=== PATIENT | female | born 1975 | race Caucasian/White ===

== ENCOUNTER 2020-06-30 09:01 | Outpatient (CLI) | payer MEDICAID, SELFPAY ==
--- NOTE | 2020-06-30 09:18 | PDOC.PAIN ---
Pain Clinic Procedure Note Procedure Note Procedure Note: Lumbar/Sacral Medial Branch Blocks JORDIN HERNANDEZ has been referred to the [facility] for lumbar/sacral medial branch blocks. COMMENTS: patient has axial midline back pain, right sacroiliac joint mediated pain as well as lumbar radicular symptoms involving the L5 nerve root, per evaluation with Ms Nara Huerta APRN in our pain clinic. patient presents today for diagnostic lumbar medial branch nerve block as the first step to manage her axial back pain. 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 Pre-operative diagnosis: lumbar spondylosis Post-operative diagnosis: same as above Patient was interviewed and the medical record reviewed. There were no medical, pharmacologic, radiographic or other structural contraindications to attempting fluoroscopically guided local anesthetic lumbar/sacral medial branch blocks. Risks and expected side effects as well as potential benefit of the procedure were reviewed and voiced concerns addressed. The printed consent form was signed and witnessed. Standard time-out procedure was performed. Patient was placed in the prone position on the fluoroscopy table and automated blood pressure cuff and pulse oximeter applied. The skin entry points for approaching the anatomic target points of the segmental medial branches of bilateral L3, L4, L5-DR were identified with anfluoroscopy and marked. Following thorough Chlorhexadine preparation of the skin and draping and 1% lidocaine infiltration of the skin entry points and subcutaneous tissues, a 22 gauge spinal needle was placed under fluoroscopic guidance down on to the target point for each respective segmental medial branch.Position was confirmed in A/P, oblique and lateral views with 0.25ml of omnipaque 240. Coult be this method .5ml 0.5% Bupivacaine was injected. Vital signs were stable throughout the procedure and were as recorded in the docflowsheet by the nursing staff. Follow up plans and appointments were discussed and was instructed to keep careful note of how the usual pain was modified by these injections. Specifically was asked to keep a pain diary for the next 24 hours using a numeric pain scale of 0-10 and report these results at the follow-up visit. Post procedure instruction was given as documented in the nursing documentation and having met discharge criteria. Patient was discharged from the [facility]. Based on the medial branches blocked today, if the patient has adequate relief and we are able to proceed to radiofrequency ablation, the treatment should result in the denervation of the bilateral L4/5 and L5/S1 facets. We would expect to denervate a total of 4 facets during the radiofrequency ablation. COMMENTS: pre-procedure pain level is 8 out of 10 with lumbar extension (Merino's testing), post-procedure pain level is reported as 4 out fo 10. I personally performed the entire procedure. Eufemia Trinidad MD Pain Management CC: Unknown,Unknown
== END 2020-06-30 09:02 | disposition home or self-care (01) ==
LOC: PC 09:01
PROVIDERS: Visit Provider Internal Medicine
DX: R69 Illness, unspecified (principal)
CPT/HCPCS: 64493; 64494

== ENCOUNTER 2020-06-30 11:25 | Outpatient (CLI) | payer MEDICAID, SELFPAY ==
--- NOTE | 2020-06-30 06:00 | DI.RAD_ITS ---
EXAM: XR PAIN CLINIC LUMBAR SP 2V CLINICAL HISTORY: Dx: Lumbar Spondylosis TECHNIQUE: COMPARISON: No exams were available for comparison FINDINGS: C-arm fluoroscopy was utilized by Dr. Oseguera during reported bilateral lumbar medial branch block. Hard c opies show bilateral injections at what appear to be the L3-4, L4-5, and L5-S1 levels. Ka,r=19.1 mGy IMPRESSION: RADIATION DOSE DELIVERED: Total DLP
[2020-06-30 09:07] VITALS: BP 123/78; PULSE 87; RESP 18; TEMP 36; O2SAT 98
[2020-06-30] MEDS: Omnipaque 240 MG/ML 50 ML BTL IJ (10:00)
[2020-06-30] MEDS: Bupivacaine 0.5% Pres-Free 10 ML VIAL IJ (10:00)
[2020-06-30 10:09] VITALS: BP 144/80; PULSE 80; RESP 16; O2SAT 97
== END 2020-06-30 11:26 | disposition home or self-care (01) ==
LOC: PC 11:25
PROVIDERS: Visit Provider Internal Medicine
DX: M47.816 Spondylosis without myelopathy or radiculopathy, lumbar region (principal)
CPT/HCPCS: 64493; 64494; 72100; Q9967

== ENCOUNTER 2020-07-07 07:50 | Outpatient (CLI) | payer MEDICAID, SELFPAY ==
[2020-07-07 07:59] VITALS: BP 127/70; PULSE 79; RESP 16; TEMP 36.4; O2SAT 100
[2020-07-07] MEDS: Omnipaque 240 MG/ML 50 ML BTL IJ (08:26)
[2020-07-07] MEDS: Lidocaine 2% Pres-Free 5 ML VIAL IJ (08:26)
--- NOTE | 2020-07-07 08:32 | PDOC.PAIN ---
Pain Clinic Procedure Note Procedure Note Procedure Note: Lumbar/Sacral Medial Branch Blocks JORDIN HERNANDEZ has been referred to the [facility] for confirmatory lumbar/sacral medial branch blocks. COMMENTS: patient has axial midline back pain, right sacroiliac joint mediated pain as well as lumbar radicular symptoms involving the L5 nerve root, per evaluation with Ms Nara Huerta APRN in our pain clinic. patient returns to clinic today for confirmatory bilateral lumbar medial branch nerve block. She responded well to the first set of diagnostic lumbar medial branch nerve block. she understands today's procedure is aimed to help with her axial back pain. Her average pain level is reported as at least 6 out of 10 on daily basis with functional impairment. Pre-operative diagnosis: lumbar spondylosis Post-operative diagnosis: same as above Patient was interviewed and the medical record reviewed. There were no medical, pharmacologic, radiographic or other structural contraindications to attempting fluoroscopically guided local anesthetic lumbar/sacral medial branch blocks. Risks and expected side effects as well as potential benefit of the procedure were reviewed and voiced concerns addressed. The printed consent form was signed and witnessed. Standard time-out procedure was performed. Patient was placed in the prone position on the fluoroscopy table and automated blood pressure cuff and pulse oximeter applied. The skin entry points for approaching the anatomic target points of the segmental medial branches of bilateral L3, L4, L5-DR were identified with anfluoroscopy and marked. Following thorough Chlorhexadine preparation of the skin and draping and 1% lidocaine infiltration of the skin entry points and subcutaneous tissues, a 22 gauge 3.5'' spinal needle was placed under fluoroscopic guidance down on to the target point for each respective segmental medial branch.Position was confirmed in A/P, oblique and lateral views with 0.25ml of omnipaque 240. Then 0.5ml 2% preservative free lidocaine was injected at each site. Vital signs were stable throughout the procedure and were as recorded in the docflowsheet by the nursing staff. Follow up plans and appointments were discussed and was instructed to keep careful note of how the usual pain was modified by these injections. Specifically was asked to keep a pain diary for the next 24 hours using a numeric pain scale of 0-10 and report these results at the follow-up visit. Post procedure instruction was given as documented in the nursing documentation and having met discharge criteria. Patient was discharged from the [facility]. Based on the medial branches blocked today, if the patient has adequate relief and we are able to proceed to radiofrequency ablation, the treatment should result in the denervation of the bilateral L4/5 and L5/S1 facets. We would expect to denervate a total of 4 facets during the radiofrequency ablation. COMMENTS: pre-procedure pain level VAS score 6 out of 10, post-procedure pain level is reported as 0 of 10 on VAS scale. I personally performed the entire procedure. Eufemia Trinidad MD Pain Management CC: Unknown,Unknown
--- NOTE | 2020-07-07 08:33 | DI.RAD_ITS ---
EXAM: XR PAIN CLINIC LUMBAR SP 2V CLINICAL HISTORY: Dx: Lumbar Spondylosis TECHNIQUE: 2D and realtime digital imaging was performed. CONTRAST MATERIAL: Refer to procedure report. COMPARISON: No exams were available for comparison FINDINGS: Fluoroscopy was provided for Dr. Trinidad during the performance of a bilateral lumbar medial branch block . Please refer to the procedure report for complete details. Ka,r=20.7 mGy IMPRESSION:
[2020-07-07 08:45] VITALS: BP 147/84; PULSE 78; RESP 18; O2SAT 98
== END 2020-07-07 07:51 | disposition home or self-care (01) ==
LOC: PC 07:51
PROVIDERS: Visit Provider Internal Medicine
DX: M47.816 Spondylosis without myelopathy or radiculopathy, lumbar region (principal)
CPT/HCPCS: 64493; 64494; 72100; Q9967

== ENCOUNTER 2020-07-14 12:57 | Outpatient (CLI) | payer MEDICAID, SELFPAY ==
--- NOTE | 2020-07-14 06:00 | DI.RAD_ITS ---
Exam(s) XR PAIN CLINIC LUMBAR SP 2V EXAM: XR PAIN CLINIC LUMBAR SP 2V CLINICAL HISTORY: Dx: Lumbar Spondylosis TECHNIQUE: 2D and realtime digital imaging was performed. CONTRAST MATERIAL: Refer to procedure report. COMPARISON: No exams were available for comparison FINDINGS: Fluoroscopy was provided for Dr. Trinidad during the performance of a bilateral lumbar radiofrequency abla tion. Please refer to the procedure report for complete details. Ka,r=22.15 mGy IMPRESSION:
[2020-07-14 13:16] VITALS: BP 140/65; PULSE 80; RESP 22; TEMP 36.4; O2SAT 100
[2020-07-14] MEDS: Lactated Ringers 1,000 ML 80 ML IV (13:40)
[2020-07-14] MEDS: fentaNYL 100 MCG/2 ML VIAL IVP (13:53)
[2020-07-14] MEDS: Midazolam 2 MG/2 ML VIAL IVP (13:53)
[2020-07-14 14:17] VITALS: BP 139/83; PULSE 80; RESP 17; O2SAT 97
--- NOTE | 2020-07-14 14:23 | PDOC.PAIN_ITS ---
Pain Clinic Procedure Note Procedure Note Procedure Note: Bilateral Lumbar Radiofrequency with Coolief Machine PROCEDURE NOTE Date of Service: July 14, 2020 Patient: JORDIN HERNANDEZ Provider: Eufemia Trinidad MD Pre Operative Diagnosis: lumbar spondylosis Post Operative Diagnosis: same as above PROCEDURE: Radiofrequency Ablation of medial branches - L3, L4, L5-DR JORDIN Mcqueen MARY was brought into the fluoroscopy suite and positioned into the prone position on the fluoroscopy table and allowed to adjust to a position of comfort. A grounding pad was placed on the right thigh. The lumbar region was widely prepped with a chloraprep solution, allowed to air dry and draped in standard sterile surgical fashion. Local anesthesia was provided by 10mL of 1% lidocaine delivered with a 25g needle. A 17g 100mm radiofrequency introducer needle was placed to the planned anatomic targets guided with intermittent fluoroscopy with a perpendicular approach to terminally place at the junction of the superior articular process and the transverse process of the bilateral L3, L4, and the base of the sacral ala on the bilateral for the L5 medial branch nerve. The stylets were removed and radiofrequency probes with a 4mm active tip were then inserted. Needle tip position of the probes was verified in the AP, oblique, and lateral views. At each site, the medial branch nerve was stimulated at 2 Hz to a maximum 1-2 volts determined to finalize safe needle and electrode placement. The patient was awake and responsive during this portion of the procedure. Each target was anesthetized with 1mL of 2% lidocaine for anesthesia for lesioning and then each target was lesioned at 80 degrees Celsius for 2 minutes and 30 seconds. Tissue impedences were noted to be between 250 and 500 Ohms. Electrodes and needles were then removed and bandages placed over the needle placement sites, the patient then returned to the supine position on a stretcher and transported to the recovery room without hemodynamic, neurologic, or allergic reactions. Fluoroscopic images were printed for hard copy recording and digitally archived. POST PROCEDURE EVALUATION: IMPRESSION: 1. Patient received 1mg of IV versed and 25mcg of IV Fentanyl 2. Post-lesioning, patient received a mixture of 40mg depomedrol with 2cc of p reservative free 0.5% Bupivocaine 3. Pre-procedure VAS pain level 6/10 and post-procedure VAS pain level 2 out of 10 Follow up plans and appointments were discussed with the JORDIN . Post procedure instruction was given as documented in nursing documentation and having met discharge criteria, JORDIN was discharged from the [facility] Management [facility]. COMMENTS: No complications. F/U with our office as needed. I personally performed this entire procedure. Eufemia Trinidad MD Attending Physician
[2020-07-14] MEDS: Lidocaine 2% Pres-Free 5 ML VIAL IJ (14:30)
[2020-07-14] MEDS: methylPREDNISolone ACETATE 80 MG/ML VIAL IJ (14:30)
[2020-07-14] MEDS: Bupivacaine 0.5% Pres-Free 10 ML VIAL IJ (14:31)
[2020-07-14] MEDS: Lidocaine 1% Pres-Free 30 ML VIAL IJ (14:31)
== END 2020-07-14 12:58 | disposition home or self-care (01) ==
LOC: PC 12:58
PROVIDERS: Visit Provider Internal Medicine
DX: M47.816 Spondylosis without myelopathy or radiculopathy, lumbar region (principal)
CPT/HCPCS: 64635; 64636; 72100; J1040; J2250; J3010

== ENCOUNTER 2020-12-31 10:34 | Outpatient (CLI) | payer MEDICAID, SELFPAY ==
[2020-12-31 10:43] VITALS: BP 140/90; PULSE 85; RESP 20; TEMP 36.7; O2SAT 99
[2020-12-31 11:07] VITALS: BP 155/92; PULSE 89; RESP 15; O2SAT 97
--- NOTE | 2020-12-31 11:08 | PDOC.PAIN_ITS ---
Pain Clinic Procedure Note Procedure Note Procedure Note: INTRA-ARTICULAR SI JOINT INJECTION Stephany Mujica has been referred to the [facility] for intra- articular SI joint injection. COMMENTS: She was previously evaluated in our clinic. Pre-procedure pain VAS = 4/10. Dx: Sacroiliac joint dysfunction Patient was interviewed and the medical record reviewed. There were no medical, pharmacologic, radiographic or other structural contraindications to attempting fluoroscopically guided intra-articular SI joint injection. Risks and expected side effects as well as potential benefit of the procedure were reviewed and voiced concerns addressed. The printed consent form was signed and witnessed. Standard time-out procedure was performed. Patient was placed in the prone position on the fluoroscopy table and automated blood pressure cuff and pulse oximeter applied. The skin entry point for approaching right SI joint was identified under the most advantageous fluoroscopic view and marked. Following thorough Chlorhexadine preparation of the skin and draping and 1% lidocaine infiltration of the skin entry point and subcutaneous tissues, a 22 gauge 3.5 spinal needle was placed under fluoroscopic guidance into right SI joints was identified under the most advantageous fluoroscopic view and marked. Intra-articular placement was confirmed by a clear arthrogram resulting from the injection of 0.25ml Omnipaque 240, 1ml 1% lidocaine, and 80mg Depomedrol were injected intra-articularily with an initial reproduction of a significant component of the usual pain. Vital signs were stable throughout the procedure and were as recorded in the docflowsheet by the nursing staff. If given, dosages of intravenous drugs for anxiolysis and analgesia were documented in MAR. Follow up plans and appointments were discussed with the patient. Post procedure instruction was given as documented in nursing documentation and having met discharge criteria, and was discharged from the [facility]. COMMENTS: Post-procedure pain VAS = 4/10 Weston Lomax DO, MPH [facility] - Subspecialty board certification in Pain Management CC:
--- NOTE | 2020-12-31 11:09 | DI.RAD_ITS ---
Exam(s) XR PAIN CLINIC SACRIOILIAC 2V EXAM: XR PAIN CLINIC SACRIOILIAC 2V CLINICAL HISTORY: Dx: Sacroiliac joint dysfunction TECHNIQUE: 2D and realtime digital imaging was performed. Radiologist not present. CONTRAST MATERIAL: None. COMPARISON: No exams were available for comparison FINDINGS: Fluoroscopy was provided for pain management therapy. Please refer to procedure report or details. Image reveals placement of needle in the inferior aspect of the right sacroiliac joint. Cumulative dose: Kar=5.01 mGy IMPRESSION: RADIATION DOSE DELIVERED:
[2020-12-31] MEDS: Omnipaque 240 MG/ML 50 ML BTL IJ (11:15)
[2020-12-31] MEDS: methylPREDNISolone ACETATE 80 MG/ML VIAL IJ (11:15)
== END 2020-12-31 10:35 | disposition home or self-care (01) ==
LOC: PC 10:35
PROVIDERS: Visit Provider Preventive Medicine Occupational Medicine
DX: M53.3 Sacrococcygeal disorders, not elsewhere classified (principal)
CPT/HCPCS: 27096; 72200; J1040; Q9967

== ENCOUNTER 2021-08-04 15:18 | Outpatient (CLI) | payer MEDICAID, SELFPAY ==
--- NOTE | 2021-08-04 06:00 | DI.RAD_ITS ---
Exam(s) XR PAIN CLINIC SACRIOILIAC 2V EXAM: XR PAIN CLINIC SACRIOILIAC 2V CLINICAL HISTORY: DX: Sacroiliac Joint Dysfunction TECHNIQUE: 2D and realtime digital imaging was performed. CONTRAST MATERIAL: Refer to procedure report. COMPARISON: No exams were available for comparison FINDINGS: Fluoroscopy was provided for Dr. Lomax during the performance of a sacroiliac joint injection. Jaswinder garcia refer to the procedure report for complete details. Ka,r=6.03 mGy IMPRESSION:
[2021-08-04 15:29] VITALS: BP 130/84; PULSE 81; RESP 20; TEMP 36.8; O2SAT 98
[2021-08-04] MEDS: Omnipaque 240 MG/ML 50 ML BTL IJ (16:20)
--- NOTE | 2021-08-04 16:28 | PDOC.PAIN ---
Pain Clinic Procedure Note Procedure Note Procedure Note: INTRA-ARTICULAR SI JOINT INJECTION Stephany Mujica has been referred to the [facility] for intra-articular SI joint injection. COMMENTS: She was originally scheduled for aleft sacroiliac joint injection. Her right SIJ pain has returned and this is worse than the left. She did request to change the procedure to the right SIJ. This was fine with me. DX: Sacroiliac joint dysfunction Pre-procedure pain VAS: 5/10. Patient was interviewed and the medical record reviewed. There were no medical, pharmacologic, radiographic or other structural contraindications to attempting fluoroscopically guided intra-articular SI joint injection. Risks and expected side effects as well as potential benefit of the procedure were reviewed and voiced concerns addressed. The printed consent form was signed and witnessed. Standard time-out procedure was performed. Patient was placed in the prone position on the fluoroscopy table and automated blood pressure cuff and pulse oximeter applied. The skin entry point for approaching right SI joint was identified under the most advantageous fluoroscopic view and marked. Following thorough Chlorhexadine preparation of the skin and draping and 1% lidocaine infiltration of the skin entry point and subcutaneous tissues, a 22 gauge spinal needle was placed under fluoroscopic guidance into right SI joints was identified under the most advantageous fluoroscopic view and marked. Intra-articular placement was confirmed by a clear arthrogram resulting from the injection of 0.25ml Omnipaque 240, 1ml 1% lidocaine, and 80mg Depomedrol were injected intra-articularily with an initial reproduction of a significant component of the usual pain. Vital signs were stable throughout the procedure and were as recorded in the docflowsheet by the nursing staff. If given, dosages of intravenous drugs for anxiolysis and analgesia were documented in MAR. Follow up plans and appointments were discussed with the patient. Post procedure instruction was given as documented in nursing documentation and having met discharge criteria, and was discharged from the [facility] Management [facility]. COMMENTS: Post-procedure pain VAS was 0/10. Weston Lomax DO, MPH [employer] [facility]-Pain Management [facility] CC:
[2021-08-04] MEDS: methylPREDNISolone ACETATE 80 MG/ML VIAL IJ (16:34)
[2021-08-04 16:36] VITALS: BP 130/84; PULSE 81; RESP 20; O2SAT 98
== END 2021-08-04 15:19 | disposition home or self-care (01) ==
PROVIDERS: Visit Provider Preventive Medicine Occupational Medicine
DX: M53.3 Sacrococcygeal disorders, not elsewhere classified (principal)
CPT/HCPCS: 27096; 72200; J1040; Q9967

== ENCOUNTER 2021-09-01 09:04 | Outpatient (CLI) | payer MEDICAID, SELFPAY ==
--- NOTE | 2021-09-01 06:00 | DI.RAD_ITS ---
Exam(s) XR PAIN CLINIC SACRIOILIAC 2V EXAM: XR PAIN CLINIC SACRIOILIAC 2V CLINICAL HISTORY: Dx: Sacroiliac Joint Dysfunction TECHNIQUE: 2D and realtime digital imaging was performed. CONTRAST MATERIAL: Refer to procedure report. COMPARISON: No exams were available for comparison FINDINGS: Fluoroscopy was provided for Dr. Lomax during the performance of a left SI joint injection. Please r efer to the procedure report for complete details. Ka,r=5.72 mGy IMPRESSION:
[2021-09-01 09:16] VITALS: BP 156/93; PULSE 91; RESP 20; TEMP 36.9; O2SAT 97
--- NOTE | 2021-09-01 09:41 | PDOC.PAIN ---
Pain Clinic Procedure Note Procedure Note Procedure Note: INTRA-ARTICULAR SI JOINT INJECTION Stephany Mujica has been referred to the [facility] for intra-articular SI joint injection. COMMENTS: I evaluated her in the office earlier this year. Pre-procedure pain VAS was 7/10. Dx: Left Sacroiliac joint dysfunction Patient was interviewed and the medical record reviewed. There were no medical, pharmacologic, radiographic or other structural contraindications to attempting fluoroscopically guided intra-articular SI joint injection. Risks and expected side effects as well as potential benefit of the procedure were reviewed and voiced concerns addressed. The printed consent form was signed and witnessed. Standard time-out procedure was performed. Patient was placed in the prone position on the fluoroscopy table and automated blood pressure cuff and pulse oximeter applied. The skin entry point for approaching left SI joint was identified under the most advantageous fluoroscopic view and marked. Following thorough Chlorhexadine preparation of the skin and draping and 1% lidocaine infiltration of the skin entry point and subcutaneous tissues, a 22 gauge 3.5 spinal needle was placed under fluoroscopic guidance into left SI joint was identified under the most advantageous fluoroscopic view and marked. Intra-articular placement was confirmed by a clear arthrogram resulting from the injection of 0.25ml Omnipaque 240, 1 cc of (80mg/cc) Depomedrol was injected intra-articularily with an initial reproduction of a significant component of the usual pain. This was flushed with 1 cc of 1% Lidocaine. The needle was removed without difficulty. Vital signs were stable throughout the procedure and were as recorded in the docflowsheet by the nursing staff. If given, dosages of intravenous drugs for anxiolysis and analgesia were documented in MAR. Follow up plans and appointments were discussed with the patient. Post procedure instruction was given as documented in nursing documentation and having met discharge criteria, and was discharged from the [facility] Management Center. COMMENTS: Post-procedure pain VAS = 1/10. Weston Lomax DO, MPH [facility]-Pain Management [facility] for [facility] CC:
[2021-09-01 09:52] VITALS: BP 172/82; PULSE 89; RESP 17; O2SAT 100
[2021-09-01] MEDS: methylPREDNISolone ACETATE 80 MG/ML VIAL IJ (09:52)
[2021-09-01] MEDS: Omnipaque 240 MG/ML 50 ML BTL IJ (09:52)
== END 2021-09-01 09:05 | disposition home or self-care (01) ==
PROVIDERS: Visit Provider Preventive Medicine Occupational Medicine
DX: M53.3 Sacrococcygeal disorders, not elsewhere classified (principal)
CPT/HCPCS: 27096; 72200; J1040; Q9967

== ENCOUNTER 2022-07-06 15:11 | Outpatient (CLI) | payer MEDICAID, SELFPAY ==
--- NOTE | 2022-07-06 06:00 | DI.RAD_ITS ---
Exam(s) XR PAIN CLINIC SACRIOILIAC 2V EXAM: XR PAIN CLINIC SACRIOILIAC 2V CLINICAL HISTORY: Dx: sacroiliac Joint dysfunction. TECHNIQUE: Fluoroscopy was provided for the referring physician for guidance with performing pain cl inic injection procedure. COMPARISON: No exams were available for comparison FINDINGS: Please see procedure note for details. Fluoro time: 36.0 seconds RADIATION DOSE DELIVERED: Ka,r=13.84 mGy
[2022-07-06 15:18] VITALS: BP 158/91; PULSE 91; RESP 20; TEMP 36.6; O2SAT 98
[2022-07-06] MEDS: methylPREDNISolone ACETATE 80 MG/ML VIAL IJ (15:46)
[2022-07-06] MEDS: Omnipaque 240 MG/ML 50 ML BTL IJ (15:46)
[2022-07-06 15:48] VITALS: BP 154/93; PULSE 83; RESP 14; O2SAT 95
--- NOTE | 2022-07-06 15:50 | PDOC.PAIN ---
Date of service: 07/06/22 Time of Service: 15:54 Pain Managment Procedure Note Procedure Note Procedure Note: INTRA-ARTICULAR SI JOINT INJECTION Stephany Mujica has been referred to the [facility] Center for intra-articular SI joint injection. COMMENTS: She had the right SIJ completed on 08/04/21 and the left SIJ injection on 09/01/21. She had 5-6 months of 60-70% relief from each of these procedures. Dx: Sacroiliac joint dysfunction Pre-procedure pain VAS was 6/10 Patient was interviewed and the medical record reviewed. There were no medical, pharmacologic, radiographic or other structural contraindications to attempting fluoroscopically guided intra-articular SI joint injection. Risks and expected side effects as well as potential benefit of the procedure were reviewed and voiced concerns addressed. The printed consent form was signed and witnessed. Standard time-out procedure was performed. Patient was placed in the prone position on the fluoroscopy table and automated blood pressure cuff and pulse oximeter applied. The skin entry point for approaching the bilateral SI joints was identified under the most advantageous fluoroscopic view and marked. Following thorough Chlorhexadine preparation of the skin and draping and 1% lidocaine infiltration of the skin entry point and subcutaneous tissues, a 22 gauge spinal needle was placed under fluoroscopic guidance into the bilateral SI joints was identified under the most advantageous fluoroscopic view and marked. Intra-articular placement was confirmed by a clear arthrogram resulting from the injection of 0.25ml Omnipaque 240, 1ml 1% lidocaine, and 40mg Depomedrol were injected intra-articularily into each joint with an initial reproduction of a significant component of the usual pain. Vital signs were stable throughout the procedure and were as recorded in the docflowsheet by the nursing staff. If given, dosages of intravenous drugs for anxiolysis and analgesia were documented in MAR. Follow up plans and appointments were discussed with the patient. Post procedure instruction was given as documented in nursing documentation and having met discharge criteria, and was discharged from the Pain Management Center. COMMENTS: Post-procedure pain VAS was 3/10. If this procedure give her at least 50% pain improvement and/or 50% functional improvement for at least 3 months, it can be repeated. Weston Lomax DO, MPH [facility]-Pain Management [facility] CC:
== END 2022-07-06 15:12 | disposition home or self-care (01) ==
LOC: PC 15:11
PROVIDERS: Visit Provider Preventive Medicine Occupational Medicine
DX: M46.1 Sacroiliitis, not elsewhere classified (principal)
CPT/HCPCS: 27096; 72200; J1040; Q9967

== ENCOUNTER 2022-11-09 13:07 | Outpatient (CLI) | payer MEDICAID, SELFPAY ==
[2022-11-09 13:20] VITALS: BP 129/89; PULSE 91; RESP 20; TEMP 36.6; O2SAT 99
[2022-11-09 13:48] VITALS: BP 158/89; PULSE 91; RESP 15; O2SAT 97
--- NOTE | 2022-11-09 13:55 | DI.RAD_ITS ---
Exam(s) XR PAIN CLINIC SACRIOILIAC 2V EXAM: XR PAIN CLINIC SACRIOILIAC 2V CLINICAL HISTORY: Dx: Sacroiliac Joint Injection TECHNIQUE: 2D and realtime digital imaging was performed. CONTRAST MATERIAL: Refer to procedure report. COMPARISON: No exams were available for comparison FINDINGS: Fluoroscopy was provided for Dr. Lomax during the performance of a left sacroiliac joint injection. Please refer to the procedure report for complete details. Ka,r=12.8 mGy IMPRESSION:
--- NOTE | 2022-11-09 14:00 | PDOC.PAIN_ITS ---
Date of service: 11/09/22 Time of Service: 14:01 Pain Managment Procedure Note Procedure Note Procedure Note: PROCEDURE NOTE BILATERAL INTRA-ARTICULAR SACROILIAC JOINT INJECTION Date of Service: November 09, 2022 Patient: Stephany Mujica Provider: Weston Garnett DO, MPH COMMENTS: I previously evaluated the patient in the office and their symptoms in relation to the sacroiliac joint pain have remained the same. Pre-operative diagnosis: Sacroiliac joint dysfunction Post-operative diagnosis: Same Pre-procedure pain: VAS= 8/10 Stephany Mujica has been referred to our [facility] for a Bilateral intra-articular Sacroiliac joint injection. Stephany was interviewed and the medical record reviewed. There were no medical, pharmacologic, radiographic or other structural contraindications to attempting a fluoroscopically-guided, contrast-enhanced, intra-articular Sacroiliac joint injection. The risks, benefits, and potential side effects of this procedure were reviewed with the patient. Questions and concerns were addressed. After it was clear that Stephany was fully informed about the procedure, the printed consent form was signed by the patient and myself. Stephany was placed in the prone position on the fluoroscopy table and an automated blood pressure cuff, 3 lead EKG, and pulse oximeter were applied. The skin entry point for approaching the left sacroiliac joint was identified under the most advantageous fluoroscopic view and marked. Following thorough Chlorhexadine preparation of the skin and draping with sterile surgical drapes, 2 mls of 1% lidocaine was infiltrated into the skin at the entry point and the surrounding subcutaneous tissues. Next, a 3.5 22G spinal needle was placed under fluoroscopic guidance into the Left sacroiliac joint. Intra-articular placement was confirmed by a clear arthrogram resulting from the injection of 0.25ml of Omnipaque-240. Next, 0.5 ml of Depo- Medrol 80 mg/ml was injected intra- articularly with an initial reproduction of a significant component of the usual pain. This was followed with 1 ml of 1% Lidocaine. The needle was then removed without difficulty. (49 ml of Omnipaque-240 was wasted). The exact procedure was completed on the opposite sacroiliac joint. Crs vital signs were stable throughout the procedure and were as recorded in nursing records. Follow up plans and appointments were discussed with Stephany. Post procedure instructions were given as documented in nursing records. Having met discharge criteria, Steph[facility] was [facility] from the [facility]. COMMENTS: Post-procedure pain: VAS= 4/10. If the patient receives at least 50% improvement in pain and/or function for at least 3 months, this procedure can be repeated if needed. I personally performed this entire procedure. WESTON GARNETT DO, MPH ABPMR-subspecialty board certification in Pain Medicine [facility]
[2022-11-09] MEDS: methylPREDNISolone ACETATE 80 MG/ML VIAL IJ (14:02)
[2022-11-09] MEDS: Omnipaque 240 MG/ML 50 ML BTL IJ (14:03)
== END 2022-11-09 13:08 | disposition home or self-care (01) ==
PROVIDERS: Visit Provider Preventive Medicine Occupational Medicine
DX: M46.1 Sacroiliitis, not elsewhere classified (principal)
CPT/HCPCS: 27096; 72200; J1040; Q9967